=== PATIENT | female | born 1980 | race Caucasian/White ===

== ENCOUNTER 2019-02-04 18:50 | Outpatient (CLI) | payer MEDICAID ==
[2019-02-04 20:27] LABS: ADD UMIC YES; UR ASCORBIC ACID NEGATIVE (NEGATIVE); UR BILIRUBIN (Dip) NEGATIVE (NEGATIVE); UR BLOOD (Dip) 1+ mg/dL (NEGATIVE); UR CLARITY CLEAR (CLEAR); UR COLOR YELLOW (YELLOW); UR GLUCOSE (Dip) NEGATIVE (NEGATIVE); UR KETONES (Dip) NEGATIVE (NEGATIVE); UR LEUKOCYTE ESTERASE (Dip) NEGATIVE Leu/ul (NEGATIVE); UR NITRITE (Dip) NEGATIVE (NEGATIVE); UR RBC 1 /HPF (0-5); UR SPECIFIC GRAVITY (Dip) 1.008 (1.003-1.030); UR SQUAMOUS EPITHELIAL CELL FEW /HPF (FEW); UR TOTAL PROTEIN (Dip) NEGATIVE (NEGATIVE); UR UROBILINOGEN (Dip) NEGATIVE (NEGATIVE); UR WBC 1 /HPF (0-5)
[2019-02-04 20:47] LABS: RUPTURE FETAL MEMBRANES NEGATIVE (NEGATIVE)
[2019-02-04] MEDS: ACETAMINOPHEN 500 MG TAB PO (21:53)
== END 2019-02-04 22:40 | disposition home or self-care (01) ==
LOC: OBT 18:50 → L-D 18:51 → OBT 22:40
DX: O62.9 Abnormality of forces of labor, unspecified (principal); Z3A.32 32 weeks gestation of pregnancy
CPT/HCPCS: 76817; 76818; 81001; 84112; 87086

== ENCOUNTER 2019-03-24 05:09 | Inpatient (IN) | payer MEDICAID ==
[2019-03-24] MEDS ORDERED: LIDOCAINE 1% (MPF) 30 ML INJ INJ (05:30)
[2019-03-24] MEDS ORDERED: OXYTOCIN 30 UNITS/LR 500 ML IV ×2 (05:30→09:00)
[2019-03-24] MEDS ORDERED: METHYLERGONOVINE 0.2 MG INJ IM ×2 (05:30→09:00)
[2019-03-24] MEDS ORDERED: CARBOPROST 250 MCG INJ IM ×2 (05:30→09:00)
[2019-03-24] MEDS ORDERED: BUTORPHANOL 2 MG INJ IV (05:30)
[2019-03-24] MEDS ORDERED: MISOPROSTOL 200 MCG TAB PR ×2 (05:30→09:00)
[2019-03-24] MEDS: LACTATED RINGER'S 1,000 ML IV ×3 (05:58→22:57)
[2019-03-24] MEDS: AMPICILLIN 2 GM/NS (PMX) 100 ML IV (05:59)
[2019-03-24] MEDS: MINERAL OIL LIGHT 10 ML VIAL TOP (07:30)
[2019-03-24] MEDS: OXYTOCIN 30 UNITS/LR 500 ML IV ×3 (08:14→13:35)
[2019-03-24] MEDS: IBUPROFEN 600 MG TAB PO (08:19)
[2019-03-24] MEDS ORDERED: ONDANSETRON 4 MG INJ IV (09:00)
[2019-03-24] MEDS ORDERED: NACL 0.9% 3 ML SYG IV (09:00)
[2019-03-24] MEDS: AMPICILLIN 1 GM/NS (PMX) 50 ML IV (09:30)
[2019-03-24] MEDS: HYDROCODONE/APAP (5/325) TAB PO ×3 (10:53→22:57)
[2019-03-24] MEDS: IBUPROFEN 600 MG TAB GTB ×3 (12:00→18:08)
[2019-03-24] MEDS: morphine 2 MG INJ IV (12:04)
[2019-03-24] MEDS: BENZOCAINE 20% 56 ML SPRAY TOP (12:04)
[2019-03-24] MEDS: WITCH HAZEL/GLYCERIN PAD PR (12:04)
[2019-03-24] MEDS: DIPHENHYDRAMINE 25 MG CAP PO (12:04)
[2019-03-24] MEDS: SENNA/DOCUSATE NA (8.6MG/50MG) TAB PO (17:10)
[2019-03-24] MEDS: MAGNESIUM HYDROXIDE 30ML CUP PO (17:10)
[2019-03-25] MEDS: IBUPROFEN 600 MG TAB GTB ×2 (00:03→05:40)
[2019-03-25] MEDS: morphine 2 MG INJ IV (01:19)
[2019-03-25] MEDS: LACTATED RINGER'S 1,000 ML IV ×2 (05:23→13:23)
[2019-03-25] MEDS: SENNA/DOCUSATE NA (8.6MG/50MG) TAB PO (05:39)
[2019-03-25] MEDS: ACETAMINOPHEN 325 MG TAB PO ×2 (08:07→15:14)
[2019-03-25] MEDS: LANOLIN HPA 1 PKT TOP (11:34)
[2019-03-25] MEDS: IBUPROFEN 600 MG TAB PO ×3 (11:34→23:38)
[2019-03-25] MEDS: HYDROCODONE/APAP (5/325) TAB PO (22:02)
[2019-03-26] MEDS: IBUPROFEN 600 MG TAB PO ×2 (05:54→11:49)
[2019-03-26] MEDS: MEASLES,MUMPS,RUBELLA VACCINE INJ SC* (09:00)
[2019-03-26] MEDS: DIPHTH/TET/ACEL PERTUSS (ADULT) 0.5 ML VIAL IM* (09:00)
== END 2019-03-26 16:23 | disposition home or self-care (01) | DRG 807 ==
LOC: OBT 05:09 → L-D 05:11 → OBT 05:20 → L-D 05:20 → PP1 10:09
PROC: 10E0XZZ Delivery of Products of Conception, External Approach (ICD-10-PCS; principal; 2019-03-24)
PROC: 3E033VJ Introduction of Other Hormone into Peripheral Vein, Percutaneous Approach (ICD-10-PCS; 2019-03-24)
DX: O69.89X0 Labor and delivery complicated by other cord complications, not applicable or unspecified (principal); Z37.0 Single live birth; Z3A.39 39 weeks gestation of pregnancy
CPT/HCPCS: 85025; 85610; 85730; 86592; 86850; 86900; 86901; 87340; 99464